=== PATIENT | female | born 1995 | race Caucasian/White ===

== ENCOUNTER → 2018-04-07 13:23 | Outpatient (CLI) | payer OTHER, SELFPAY ==
[2018-04-08 20:27] LABS: Varicella Zoster IgG <135 index (Immune >165)
== END ==
PROVIDERS: PCP Nurse Practitioner Family; Visit Provider Nurse Practitioner Family
DX: Z11.59 Encounter for screening for other viral diseases (principal)
CPT/HCPCS: 36415; 86787

== ENCOUNTER 2020-02-07 12:21 | Outpatient (RCR) | payer BC, SELFPAY | END 2020-02-07 13:00 | disposition home or self-care (01) | LOC: PT 12:21 | PROVIDERS: Visit Provider Orthopaedic Surgery | DX: S82.92XA Unspecified fracture of left lower leg, initial encounter for closed fracture (principal) | CPT/HCPCS: 97760 ==

== ENCOUNTER → 2020-03-07 14:25 | Outpatient (CLI) | payer BC, SELFPAY ==
--- NOTE | 2020-03-07 14:31 | XR_ITS ---
PROCEDURE: XR ANKLE LT MIN 3V CLINICAL INDICATION: fibula fracture COMPARISON: No exams were available for comparison FINDINGS: Included extends of the distal left tibia and fibula appear intact. Normal medial and lateral malleoli. The ankle mortise is anatomic. Intact talar dome and calcaneus. Normal talonavicular and calcaneocuboid articulations. There is significant soft tissue edema/swelling of the ankle demonstrated. IMPRESSION: 1.Negative for acute fracture or dislocation. 2. Periarticular soft tissue edema/swelling of the ankle. Dictated by: Shaquille Juárez 03/07/2020 15:02 Electronically signed by Shaquille Juárez in [facility] 03/07/2020 15:02
== END ==
PROVIDERS: Visit Provider Orthopaedic Surgery
DX: S82.832A Other fracture of upper and lower end of left fibula, initial encounter for closed fracture (principal)
CPT/HCPCS: 73610

== ENCOUNTER 2020-03-07 15:29 | Outpatient (RCR) | payer BC, SELFPAY | END 2020-03-07 16:00 | disposition home or self-care (01) | LOC: PT 15:29 | PROVIDERS: Visit Provider Orthopaedic Surgery | DX: S82.832D Other fracture of upper and lower end of left fibula, subsequent encounter for closed fracture with routine healing (principal) | CPT/HCPCS: 97760 ==

== ENCOUNTER → 2020-04-07 14:49 | Outpatient (CLI) | payer BC, SELFPAY ==
--- NOTE | 2020-04-07 14:54 | XR_ITS ---
PROCEDURE: XR ANKLE LT MIN 3V CLINICAL INDICATION: LT fibula fracture Follow-up fracture COMPARISON: CR XR ANKLE 3+ VW LEFT from 02/05/2020 CR XR ANKLE LT MIN 3V from 03/07/2020 FINDINGS: The transverse fracture at the distal aspect of the fibula at the epiphyseal remnant is barely visible with some sclerosis at this area consistent with healing. The ankle mortise is preserved. IMPRESSION: Further healing of nondisplaced distal fibular fracture Dictated by: Tarun Lincoln MD 04/07/2020 15:29 Tarun Lincoln MD in [facility] 04/07/2020 15:29
== END ==
PROVIDERS: Visit Provider Orthopaedic Surgery
DX: S82.839A Other fracture of upper and lower end of unspecified fibula, initial encounter for closed fracture (principal)
CPT/HCPCS: 73610

== ENCOUNTER → 2021-09-10 08:50 | Outpatient (CLI) | payer BC, SELFPAY | PROVIDERS: Visit Provider Nurse Practitioner | DX: U07.1 COVID-19 (principal) | CPT/HCPCS: C9803; U0003; U0005 ==

== ENCOUNTER 2021-11-22 15:22 | Emergency (ER) | payer BC, SELFPAY ==
[2021-11-22 16:10] VITALS: BP 133/90; PULSE 86; RESP 19; TEMP 37.1; O2SAT 98; BMI 32.3
--- NOTE | 2021-11-22 16:34 | HMH.EDUTC ---
[facility] [place] Clinical Impression: Acute maxillary sinusitis Qualifiers: Recurrence: non-recurrent Qualified Code(s): J01.00 - Acute maxillary sinusitis, unspecified Disposition: Home, Self-Care Condition on Discharge: Good Instructions: DI for Sinusitis Additional Instructions: Start antibiotic patient to take as ordered for a full length of time even if you feel better. Sinus infections do not get better overnight. It may take 2-3 days to notice much improvement so be sure to use conservative measures as discussed for symptoms. Flonase 1 spray each nostril daily to help with nasal congestion, sinus and ear pressure/information Increase fluids Humidifier/vaporizer as needed Tylenol and ibuprofen as needed for fever or pain. If symptoms do not improve or get worse return or be seen in the ER Follow-up with primary care this week Prescriptions: predniSONE [Prednisone 20mg Tab] 20 mg PO BID #10 tab Transmission Status: Pending to [id number] Azithromycin [Zithromax 250mg tab] 250 mg PO DIRECTED #6 tab Transmission Status: [id number] Referrals: Provider,Referral, MD [Primary Care Provider] - Time of Disposition: 16:39 Medical Decision Making - Jim Inquiry Pt receiving controlled substance: No Vital Signs: 11/22/21 16:10 Temperature 98.7 F Temperature Source Oral Pulse Rate [Right Brachial] 86 Respiratory Rate 19 Blood Pressure [Right Arm] 133/90 Blood Pressure Mean [Right Arm] 104 Blood Pressure Source [Right Arm] Automatic Cuff Blood Pressure Position [Right Arm] Sitting 02 Sat by Pulse Oximetry 98 Oxygen Delivery Method Room Air [facility] [place] - General Chief complaint: Urgent [facility] Stated complaint: ching,cough Time Seen by Provider: 11/22/21 16:34 Mode of Arrival: Ambulatory Source of Information: Patient Limitations: No Limitations Description of Symptoms (Recalled from Triage Doc. by RN): PATIENT C/O COUGH THAT SHE HAS HAD SINCE HAVING THE FLU A WEEK AGO HEENT Symptoms (Recalled from RN notes): No Resp Symptoms (Recalled from RN notes): Yes Skin Symptoms (Recalled from RN notes): No MS Symptoms (Recalled from RN notes): No Functional Status (Recalled from RN notes): WNL - History of Present Illness Provider Complaint: 26 yr old female presnets for coughing up thick sputum and congestion since having the flu last week and not improving - Related Data Home Medications Medication Instructions Recorded Confirmed multivitamin 1 tab PO DAILY 06/09/21 06/09/21 Previous Rx's Medication Instructions Recorded etonogestrel 0.12 mg-ethinyl 1 vag ring VAGINAL Q4W #3 each 06/09/21 estradiol 0.015 mg/24 hr vaginal ring Azithromycin [Zithromax 250mg 250 mg PO DIRECTED #6 tab 11/22/21 tab] predniSONE [Prednisone 20mg 20 mg PO BID #10 tab 11/22/21 Tab] Allergies Allergy/AdvReac Type Severity Reaction Status Date / Time No Known Allergies Allergy Verified 06/09/21 11:05 - Worker's Comp Is this a Worker's Comp case?: No [facility] History - Hepatitis A Screen Drug use history?: No High risk sexual behaviors?: No History of sexually transmitted infection?: No Currently employed?: No Childcare worker?: No Do you have indoor plumbing?: Yes Do you have electricity?: Yes Attestation statement:: This patient has been screened for Hepatitis A risk factors. I have reviewed the patient's past medical history: Yes Laterality Cases: Bilateral: Tonsillectomy Other Surgeries: Yes: Other Amputation: No Fractures: No Comment: wisdom teeth, adenoids - Social History Smoking Status: Never smoker Alcohol Intake: current Alcohol Intake Frequency:: holidays/special occasions only Substance Use Type: denies use Occupational Status: unemployed Family Hx:: No significant family history ROS Obtained: Yes Systems reviewed as appropriate & no additional complaints - Constitutional Constitutional: Reports system revi
[2021-11-22 16:37] VITALS: BP 133/90; PULSE 86; RESP 19; TEMP 37.1; O2SAT 98
== END 2021-11-22 16:51 | disposition home or self-care (01) ==
PROVIDERS: Emergency Provider Nurse Practitioner Family
DX: J01.00 Acute maxillary sinusitis, unspecified (principal); Z79.3 Long term (current) use of hormonal contraceptives; Z79.899 Other long term (current) drug therapy
CPT/HCPCS: 99213; G0463

== ENCOUNTER 2023-11-03 17:54 | Emergency (ER) | payer BC, SELFPAY ==
[2023-11-03 18:00] VITALS: BP 137/93; PULSE 76; RESP 20; TEMP 36.6; O2SAT 97; BMI 29.6
[2023-11-03 18:26] LABS: UTC Strep Screen (Rapid) Negative (Negative)
--- NOTE | 2023-11-03 18:40 | EXP.UTC ---
Discharge Plan Disposition Patient Disposition: Home, Self-Care Condition: Good Prescriptions Prescriptions: New prednisone 10 mg tablet 10 mg PO BID 3 Days Qty: 6 0RF azithromycin [Zithromax] 250 mg tablet 250 mg PO UD DOSE PK Qty: 6 0RF Rx Instructions: Take two (2) tablets today, then one (1) tablet days #2 thru #5 bpfrfxwjtofkvys-mjsfrilrk-DR [Bromfed DM] 2-30-10 mg/5 mL Syrup 5 ml PO Q6H PRN (Reason: Cough) Qty: 240 0RF No Action cholecalciferol (vitamin D3) 10 mcg (400 unit) capsule 10 mcg PO DAILY Referrals Follow up/Referrals: Ellen Salguero APRN [Primary Care Provider] - See instructions Activity Restrictions/Add. Instructions Additional Instructions/Restrictions: Drink plenty of fluids. Take tylenol or ibuprofen for pain or fever. Take the medications as directed. Follow up with your regular doctor. GO TO THE ER FOR ANY WORSENING SYMPTOMS Clinical Impressions Clinical Impression: Pharyngitis, Exposure to strep throat Stand Alone Forms Stand Alone Forms: Work/School Release Instructions Patient Instructions: Sore Throat, DI for Pharyngitis/Tonsillopharyngitis -- Adult Discharge ED Provider: Omar Ortiz [facility] [place] General Stated complaint: sore throat Mode of Arrival: Ambulatory Source of Information: Patient Limitations: No Limitations Time Seen by Provider: 11/03/23 18:30 Description of Symptoms (Recalled from Triage Doc. by RN): PATIENT C/O SORE THROAT X 1 WEEK THAT HAS GOTTEN WORSE OVER THE LAST COUPLE OF DAYS HEENT Symptoms (Recalled from RN notes): Yes Resp Symptoms (Recalled from RN notes): No Skin Symptoms (Recalled from RN notes): No MS Symptoms (Recalled from RN notes): No Functional Status (Recalled from RN notes): WNL Related Data Home Medications Medication Instructions Recorded Confirmed cholecalciferol (vitamin D3) 10 10 mcg PO DAILY 10/14/22 10/14/22 mcg (400 unit) capsule Previous Rx's Medication Instructions Recorded azithromycin 250 mg tablet 250 mg PO UD DOSE PK #6 tabs 11/03/23 (Zithromax) nroovmlgwogsopt-iqazxukvitpgayz-TR 5 ml PO Q6H PRN Cough #240 mL 11/03/23 2 mg-30 mg-10 mg/5 mL oral syrup (Bromfed DM) prednisone 10 mg tablet 10 mg PO BID 3 days #6 tabs 11/03/23 Allergies Allergy/AdvReac Type Severity Reaction Status Date / Time No Known Allergies Allergy Verified 10/14/22 13:32 Worker's Comp Is this a Worker's Comp case?: No [facility] Disclaimer: The information contained in this section may have been updated after the patient was seen, as this information can be updated by other users. Surgical History (Updated 10/14/22 @ 13:36 by MONI Lamas) Orange teeth extracted History of tonsillectomy and adenoidectomy Family History Mother Lupus Cancer Cervical Social History Smoking Status: Never smoker alcohol intake: current substance use type: denies use current occupational status: unemployed Travel in the last 8 weeks: None ROS Obtained: Yes All systems reviewed & no additional complaints except as documented Constitutional Constitutional: Reports chills and Reports fever(s) Eyes Eyes: Denies eye discharge ENT Ears, Nose, Mouth, and Throat: Reports as per HPI Cardiovascular Cardiovascular: Denies chest pain Respiratory Respiratory: Denies chest congestion and Reports cough Gastrointestinal Gastrointestingal: Reports nausea; Denies abdominal pain, constipation, cramping, diarrhea or vomiting Musculoskeletal Musculoskeletal: Denies arthralgias Integumentary/Breasts Skin/Breast: Denies rash Neurologic Neurologic: Denies paresthesias Physical Exam General General appearance: alert and in no apparent distress Head Head exam: atraumatic, normocephalic and normal inspection Eye Eye exam: Present normal appearance, PERRL and EOMI ENT ENT exam: Present mucous membranes moist and normal external ear exam Expanded ENT Exam TM/Canal exam: Bilateral TM: erythema and bulging Nose exam: Absent sinus tenderness Mouth exam: Present normal external inspection; Absent drooling Teeth exam: Present normal inspection Throat exam: Present tonsillar erythema, tonsillomegaly and tonsillar exudate Neck Neck exam: Present normal inspection, full ROM and trachea midline; Absent tenderness, meningismus or lymphadenopathy Chest Chest inspection: Present normal inspection and symmetric chest wall rise; Absent tenderness Respiratory Respiratory exam: Present normal lung sounds bilaterally; Absent respiratory distress, wheezes or stridor Cardiovascular Cardiovascular exam: Present regular rate and normal rhythm; Absent systolic murmur or diastolic murmur Abdominal Exam Abdominal exam: Present soft and normal bowel sounds; Absent distention, tenderness, guarding, rebound or rigidity Extremities Exam Extremities exam: Present normal inspection and normal capillary refill; Absent calf tenderness Back Exam Back exam: Present normal inspection and full ROM; Absent tenderness, CVA tenderness (R) or CVA tenderness (L) Neurological Exam Neurological exam: Present alert, oriented X3 and CN II-XII intact Psychiatric Psychiatric exam: Present normal affect and normal mood Skin Skin exam: Present warm, dry, intact and normal color Medical Decision Making Medical Records Medical records reviewed: No I reviewed the patient's medical records. Jim Inquiry Pt receiving controlled substance: No Vital Signs: 11/03/23 18:00 Temperature 97.9 F Temperature Source Oral Pulse Rate [Right Brachial] 76 Respiratory Rate 20 Blood Pressure [Right Arm] 137/93 H Blood Pressure Mean [Right Arm] 107 Blood Pressure Source [Right Arm] Automatic Cuff Blood Pressure Position [Right Arm] Sitting 02 Sat by Pulse Oximetry 97 Oxygen Delivery Method Room Air Lab Data Lab results reviewed: Yes I reviewed the patient's lab results. Lab Results 11/03/23 18:05: Strep Scn Rapid Clinic Negative Orders (Tests/Meds): ORDERS Category Date Time Status Strep Screen Confirmation Stat Micro 11/03/23 18:05 Received
[2023-11-03 18:59] VITALS: BP 137/93; PULSE 76; RESP 20; TEMP 36.6; O2SAT 97
== END 2023-11-03 19:02 | disposition home or self-care (01) ==
PROVIDERS: Emergency Provider Nurse Practitioner Family; PCP Nurse Practitioner Family
DX: J02.9 Acute pharyngitis, unspecified; R05.9 Cough, unspecified
CPT/HCPCS: 87880; 99212; 99214; G0463

== ENCOUNTER 2025-06-30 08:43 | Outpatient (CLI) | payer BC, SELFPAY ==
--- OUTSIDE RECORDS SUMMARY | 2025-05-29 10:00 | XMS_ITS | Encounter Summary ---
[facility] Address [address] [place] [address] Care Team Providers Care Market Research Senior Project Manager Name Role Phone Ellen Salguero APRN Primary Care Provider [phone] Reason for Visit * Reason Comments Care Encounter Details Date Type Department Care Team (Late st Contact Info) Description 05/29/2025 11:00 AM EDT Visit [facility] [address] [place] [address] Sierra Jamil, REFRIGERATING TECHNICIAN [address] [place] [address] follow-up (Primary Dx); Sterilization education Social History Tobacco Use Types Packs/Day Years Used Date Smoking Tobacco: Never Smokeless Tobacco: Never Tobacco Cessation:Counseling Given: Not Answered Alcohol Use Standard Drinks/Week Comments Not Currently 0 (1 standard drink = 0.6 oz pur e alcohol) prior to [facility] Utilities Answer Date Recorded In the past 12 months has [employer] electric, gas, oil, or water company threatened to shut off services in your home? No 04/15/2025 AUDIT-C Answer Date Recorded Q1: How often do you have a drink containing alcohol? Never 04/15/2025 Q2: How many drinks containi ng alcohol do you have on a typical day when you are drinking? Patient does not drink Q3: How often do you have si x or more drinks on one occasion? Never 04/15/2025 Overall Financial Resource Strain (CARDIA) Answe r Date Recorded How hard is it for you to pa y for the very basics like food, housing, medical care, and heating? Not hard at all 04/15/2025 [facility] - Occupational Stress Questionnaire Answer Date Recorded Do you feel stress - tense, restless, nervous, or anxious, or unable to sleep at night because your mind is troubled all the time - these days? Not at all 04/15/2025 Exercise Vital Sign Answer Date Recorde d On average, how many days pe r week do you engage in moderate to strenuous exercise (like a brisk walk)? 5 days 04/15/2025 On average, how many minutes do you engage in exercise at this level? 60 min 04/15/2025 Hunger Vital Sign Answer Date Recorded Within the past 12 months, y ou worried that your food would run out before you got the money to buy more. Never true 04/15/20 25 Within the past 12 months, t he food you bought just didn't last and you didn't have money to get more. Never true 04/15/2025 PRAPARE - Transportation Answer Date Re corded In the past 12 months, has l ack of transportation kept you from medical appointments or from getting medications? No 03/2025 In the past 12 months, has l ack of transportation kept you from meetings, work, or from getting things needed for daily living? No 04/15/2025 Ada Depression Scale Answer Date Recorded Ada Depression Scale Total 9 05/29/2025 The thought of harming myself has occurred to me . Never 05/29/2025 Abuse Screen Answer Date Recorded Feels Unsafe at Home or Work/School no 04/15/2025 Feels Threatened by Someone no 03/2025 Does Anyone Try to Keep You From Having Contact with Others or Doing Things Outside Your Home? no 04/15/2025 Physical Signs of Abuse Present no 04/15/2025 Housing Stability Answer Date Recorded Current Living Arrangements home 04/2025 Potentially Unsafe Housing Conditions none 04/16/2025 Family and Community Support Answer Fabian e Recorded If for any reason you need h elp with day-to-day activities such as bathing, preparing meals, shopping, managing finances, etc., do you get the help you need? I don't need any help 04/15/2025 How often do you feel lonely or isolated from those around you? Never 04/15/2025 Employment Answer Date Recorded Do you want help finding or keeping work or a job? I do not need or want help 04/15/2025 Disabilities Answer Date Recorded Difficulty Concentrating, Remembering or Making Decisions no 04/15/2025 Difficulty Managing Errands Independently no 04/15/2025 Education Answer Date Recorded Do you want help with school or training? For example, starting or completing job training or getting a high school diploma, GED or equivalent No 04/15/2025 Preferred Language Yoruba 04/15/2025 PHQ-2 Answer Date Recorded Patient Health Questionnaire-2 Score 0 04/15/2025 Comments No Sex and Gender Information Value Date Recorded Sex Assigned at Female 04/09/2025 11:47 AM EDT Legal Sex Female 1:50 PM EDT Gender Identity Not on file Sexual Orientation Not on file documented as of this encounter Last Filed Vital Signs Vital Sign Reading Time Taken Comments Blood Pressure 110/78 05/29/2025 11:08 AM EDT Pulse - - Temperature - - Respiratory Rate 18 05/29/2025 11:08 AM EDT Oxygen Saturation - - Inhaled Oxygen Concentration - - Weight 101 kg (223 lb) 05/29/2025 11:08 AM EDT Height 165.1 cm (5' 5 ) 05/29/2025 11:08 AM EDT Body Mass Index 37.11 05/29/2025 11:08 AM EDT documented in this encounter Progress Notes * Sierra Jamil, LILLY - 05/29/2025 11:00 AM EDT Images from the original note were not included. Chief Complaint Patient presents with Care Visit Emma Kim is a 29 y.o. who presents today for a 6 week(s) check. Vaginal, Spontaneous Information for the patient's : Carlos Kim [[id number]] 04/15/2025 male Carlos Kim 4640 g (10 lb 3.7 oz) Gestational Age: 40w4d Baby Discharged: Discharged with Mom Delivering Physician: Myah Mcqueen MD Her was complicated by no known issues. The laceration was 1st degree and is healing well. Patient describes vaginal bleeding as absent. Patient is . She desires a tubal ligation for contraception. She would like to discuss the following complaints today: none. Patient denies concerns for depression/anxiety. Patient denies suicidal or homicidal ideation. Her depression screening questionnaire: 9. No treatment is indicated Last Pap : 11/2023 at [facility] per Patient. Results: negative. HPV: negative. Last Completed Pap Smear This patient has no relevant Health Maintenance data. The additional following portions of the patient's history were reviewed and updated as appropriate: allergies, current medications, past family history, past medical history, past social history, past surgical history, and problem list. Review of Systems All other systems reviewed and are negative. I have reviewed and agree with the HPI, ROS, and historical information as entered above. Sierramarcelino Jamil, REFRIGERATING TECHNICIAN BP 110/78 Resp 18 Ht 165.1 cm (65 ) Wt 101 kg (223 lb) LMP 07/09/2024 Yes BMI 37.11 kg/m?? Physical Exam Vitals and nursing note reviewed. Exam conducted with a duplicator punch operator present. Constitutional: General: She is not in acute distress. Appearance: Normal appearance. She is not ill-appearing. Pulmonary: Effort: Pulmonary effort is normal. No respiratory distress. Abdominal: General: There is no distension. Palpations: Abdomen is soft. There is no mass. Tenderness: There is no abdominal tenderness. There is no guarding or rebound. Hernia: No hernia is present. Genitourinary: General: Normal vulva. Vagina: Normal. Cervix: Normal. Uterus: Normal. Adnexa: Right adnexa normal and left adnexa normal. Skin: General: Skin is warm and dry. Neurological: Mental Status: She is alert and oriented to person, place, and time. Psychiatric: Mood and Affect: Mood normal. Behavior: Behavior normal. Assessment and Plan Problem List Items Addressed This Visit None Visit Diagnoses follow-up - Primary Sterilization education S/p Vaginal delivery, 6 week(s) . Doing well. Return to normal physical activity. No pelvic restrictions. Baby doing well. going well. No si/sx of depression Contraception: planning sterilization; no UPI Return in about 1 year (around 05/29/2026) for Annual physical. Sierra Jamil APRN 05/29/2025 documented in this encounter Plan of Treatment Not on file documented as of this encounter Visit Diagnoses Diagnosis follow-up- Primary Routine follow-up Sterilization education documented in this encounter Care Teams Market Research Senior Project Manager Relationship Specialty Start Date End Date Ellen Salguero APRN [address] [place] [address] PCP - General 04/10/25 documented as of this encounter
[2025-06-30 20:08] LABS: Coronavirus 19, PCR Not Detected (NotDetected); Influenza A, PCR Not Detected (NotDetected); Influenza B, PCR Not Detected (NotDetected)
--- OUTSIDE RECORDS SUMMARY | 2025-07-01 10:44 | XMS_ITS | Patient Health Record ---
Author Organization [facility] Address [address] [place] [address] Care Team Providers Care Virginia Line Attendant Name Role Phone Jasmyne Dupree Unavailable [phone] Allergies Allergen (clinical drug ingredient) Drug/Non Drug Allergy documented on EMR Reaction Allergy Type Onset Date Status LATEX EXAM GLOVES (DISPOSABLE GLOVES) Unspecified Drug Allergy 06/18/2015 Active Reason For Referral No Information Problems Problem Type SNOMED Code ICD Code Onset Dates Problem Status W/U Status Risk Notes Problem state, 2 weeks (18568908) 2 weeks follow-up (Z39.2) 05/05/20 20 Active confirmed visit Plan Of Treatment No Information Medical (General) History Medical History History ICD Code A Routine Yeast Infection Acid Reflux Urinary tract infections MENSTR FLOW: Medium BABYPHYSNAME: - Surgical History Surgery Date(Month/Year) T&A, wisdom teeth
--- OUTSIDE RECORDS SUMMARY | 2025-07-01 10:44 | XMS_ITS ---
Author Organization Unknown ENCOUNTERS Encounter Performer Location Date Diagnosis Diagnosis Status Pre Admit [facility] [address] [place] [address] [id number] Emergency [facility] [address] [place] [address] [id number] [facility] Emergency [facility] [address] [place] [address] [id number] JAMESON *Note: Encounters from your own facility or health system may be excluded. Allergies, Adverse Reactions, Alerts Allergen Type Severity Identification Date Medications Name Date Quantity Days Supplied GPI Number
--- OUTSIDE RECORDS SUMMARY | 2025-07-01 10:44 | XMS_ITS | Clinical Summary ---
[facility] [address] [place] [address] Care Team Providers Care Customer Support Executive Name Role Phone Ellen Salguero APRN Primary Care Provider [phone] Allergies No known active allergies Medications Vit-Fe Fumarate-FA ( ) 27-1 MG tablet tablet Take 1 tablet by mouth Daily. Active Active Problems Problem Noted Date Diagnosed Date Normal labor 04/15/2025 (normal spontaneous vaginal delivery) 04/15 Overview (04/15/2025): 04/15/2025- at 40 weeks and 4 days 10 pounds 4 ounces baby boy named Carlos with 32nd shoulder dystocia Shoulder dystocia during labor and delivery 03/2025 09/05/2024 Overview (02/20/2025): 2 prev term, largest 8#5oz EFW 32 wks 97%ile, repeat growth 36 wks Resolved Problems Problem Noted Date Diagnosed Date Resolved Date (normal spontaneous vaginal delivery) 03/24/2020 09/05/2024 Normal labor 03/23/2020 03/24/2020 02/05/2020 03/24/2020 Encounters Date Type Department Care Team Description 05/29/2025 11:00 AM EDT Visit [facility] OBGYN [address] [place] [address] Sierra Jamil APRN follow-up (Primary Dx); Sterilization education 05/29/2025 Travel 04/26/2025 Maternal Screening [facility] NURSE CALL CENTER [address] [place] [address] Era Jim RN 04/26/2025 Maternal Screening [facility] NURSE CALL CENTER [address] [place] [address] Era Jim RN 04/18/2025 Maternal Screening [facility] NURSE CALL CENTER [address] [place] [address] Era Jim RN 04/15/2025 1:56 PM EDT - 04/17/2025 12:00 PM EDT Hospital Encounter [facility] MOTHER BABY 4B [address] [place] [address] Janice Holman MD Discharge Disposition: Home or Self Care 04/15/2025 Travel 04/10/2025 9:40 AM EDT Routine [facility] OBGYN [address] [place] [address] Sierra Jamil APRN GA: [id number] 04/10/2025 Travel 04/03/2025 8:30 AM EDT Routine [facility] [place] [address] Janice Holman MD GA: [id number] 04/03/2025 Travel from Last 3 Months Immunizations Immunization Administration Dates Next Due Tdap 01/23/2025 Family History Medical History Relation Name Comments No Known Problems Brother No Known Problems Father Hypertension Maternal Grandmother Cervical cancer Mother Lupus Mother Scleroderma Mother No Known Problems Paternal Grandfather Cancer Paternal Grandmother No Known Problems Sister Relation Name Status Comments Brother Alive Father Alive Maternal Grandmother Alive Mother Alive Paternal Grandfather Alive Paternal Grandmother Alive Sister Alive Social History Tobacco Use Types Packs/Day Years Used Date Smoking Tobacco: Never Smokeless Tobacco: Never Tobacco Cessation:Counseling Given: Not Answered Alcohol Use Standard Drinks/Week Comments Not Currently 0 (1 standard drink = 0.6 oz pur e alcohol) prior to [facility] Utilities Answer Date Recorded In the past 12 months has th e electric, gas, oil, or water company threatened [...] and heating? Not hard at all 04/15/2025 [facility] - Occupational Stress Questionnaire Answer Date Recorded [...] things needed for daily living? No 04/15/2025 [place] Depression Scale Answer Date Recorded [place] Depression Scale Total 9 05/29/2025 The thought [...] GED or equivalent No 04/15/2025 Preferred Language Citizen Of [place] 04/15/2025 PHQ-2 Answer Date Recorded Patient Health Questionnaire-2 Score 0 04/15/2025 Comments No Sex and Gender Information Value Date Recorded Sex Assigned at Female 04/09/2025 11:47 AM EDT Legal Sex Female 1:50 PM EDT Gender Identity Not on file Sexual Orientation Not on file Last Filed Vital Signs Vital Sign Reading Time Taken Comments Blood Pressure 110/78 05/29/2025 11:08 AM EDT Pulse 81 04/17/2025 7:25 AM EDT Temperature 36.8 C (98.3 F) 04/17/2025 7:25 AM EDT Respiratory Rate 18 05/29/2025 11:08 AM EDT Oxygen Saturation 98% 02/05/2020 4:36 PM EDT Inhaled Oxygen Concentration - - Weight 101 kg (223 lb) 05/29/2025 11:08 AM EDT Height 165.1 cm (5' 5 ) 05/29/2025 11:08 AM EDT Body Mass Index 37.11 05/29/2025 11:08 AM EDT Plan of Treatment Health Maintenance Due Date Last Done Comments Annual Gynecologic Pelvic and Breast Exam 1995 PAP SMEAR 2016 ANNUAL PHYSICAL 09/05/2024 INFLUENZA VACCINE 03/08/2025 05/01/2024, , 07/27/2023, Additional history exists TDAP/TD VACCINES (3 - Td or Tdap) 01/23/2035 01/23/2025, 02/14/2020, 08/28/2018 CHLAMYDIA SCREENING Discontinued 09/05/2024 HEPATITIS C SCREENING Completed 09/05/2024, 020 Pneumococcal Vaccine 0-49 Aged Out No longer eligible based on patient's age to complete this topic Procedures Procedure Name Priority Date/Time Associated Diagnosis Comments CBC AND DIFFERENTIAL Timed 04/16/2025 5:13 AM EDT CBC WITH AUTO DIFFERENTIAL Timed 04/16/2025 5:13 AM EDT TYPE AND SCREEN Routine 04/15/2025 4:13 PM EDT TREPONEMA PALLIDUM AB W/REFLEX RPR Routine 04/15/2025 4:13 PM EDT COMPREHENSIVE METABOLIC PANEL Routine 04/15/2025 4:13 PM EDT CBC (NO DIFF) Routine 04/15/2025 4:13 PM EDT POCT URINALYSIS DIPSTICK, MANUAL Routine 04/10/2025 10:05 AM EDT care, antepartum, unspecified 39 weeks gestation of POCT URINALYSIS DIPSTICK, MANUAL Routine 04/03/2025 8:30 AM EDT 38 weeks gestation of care, antepartum, unspecified CHLAMYDIA TRACHOMATIS, NEISSERIA GONORRHOEAE, PCR Routine 09/05/2024 12:38 PM EST care, antepartum OBSTETRIC PANEL Routine 09/05/2024 12:38 PM EST care, antepartum from Last 3 Months or Most Recently Relevant to Health Maintenance Results * (ABNORMAL) CBC Auto Differential (04/16/2025 5:13 AM EDT) WBC 14.39(H) 3.40 - 10.80 10*3/mm3 04/16/2025 5:56 AM EDT [facility] RBC 4.12 3.77 - 5.28 10*6/mm3 04/16/2025 5:56 AM EDT [facility] Hemoglobin 11.8(L) 12.0 - 15.9 g/dL 04/16/2025 5:56 AM EDT [facility] Hematocrit 36.0 34.0 - 46.6 % 04/16/2025 5:56 AM EDT [facility] MCV 87.4 79.0 - 97.0 fL 04/16/2025 5:56 AM EDT [facility] MCH 28.6 26.6 - 33.0 pg 04/16/2025 5:56 AM EDT [facility] MCHC 32.8 31.5 - 35.7 g/dL 04/16/2025 5:56 AM EDT [facility] RDW 13.9 12.3 - 15.4 % 04/16/2025 5:56 AM EDT [facility] RDW-SD 44.3 37.0 - 54.0 fl 04/16/2025 5:56 AM EDT [facility] MPV 9.8 6.0 - 12.0 fL 04/16/2025 5:56 AM EDT [facility] Platelets 234 140 - 450 10*3/mm3 04/16/2025 5:56 AM EDT [facility] Neutrophil % 77.8(H) 42.7 - 76.0 % 04/16/2025 5:56 AM EDT [facility] Lymphocyte % 15.3(L) 19.6 - 45.3 % 04/16/2025 5:56 AM EDT [facility] Monocyte % 5.1 5.0 - 12.0 % 04/16/2025 5:56 AM EDT [facility] Eosinophil % 0.6 0.3 - 6.2 % 04/16/2025 5:56 AM EDT [facility] Basophil % 0.3 0.0 - 1.5 % 04/16/2025 5:56 AM EDT [facility] Immature Grans % 0.9(H) 0.0 - 0.5 % 04/16/2025 5:56 AM EDT [facility] Neutrophils, Absolute 11.19(H) 1.70 - 7.00 10*3/mm3 04/16/2025 5:56 AM EDT [facility] Lymphocytes, Absolute 2.20 0.70 - 3.10 10*3/mm3 04/16/2025 5:56 AM EDT [facility] Monocytes, Absolute 0.74 0.10 - 0.90 10*3/mm3 04/16/2025 5:56 AM EDT [facility] Eosinophils, Absolute 0.08 0.00 - 0.40 10*3/mm3 04/16/2025 5:56 AM EDT [facility] Basophils, Absolute 0.05 0.00 - 0.20 10*3/mm3 04/16/2025 5:56 AM EDT [facility] Immature Grans, Absolute 0.13(H) 0.00 - 0.05 10*3/mm3 04/16/2025 5:56 AM EDT [facility] nRBC 0.0 0.0 - 0.2 /100 WBC 04/16/2025 5:56 AM [facility] Blood Venipuncture / Unknown 04/16/2025 5:13 AM EDT 04/16/2025 5:43 AM EDT us Myah Mcqueen MD LAB BLOOD ORDERABLES Fin al Result [facility]
[address] [place] [address], [place] [phone] * Treponema pallidum AB w/Reflex RPR (04/15/2025 4:13 PM EDT) Treponemal AB Total Non-Reacti ve Non-React henrry 04/15/2025 11:38 PM EDT [facility] Blood Venipuncture / Unknown 04/15/2025 4:13 PM EDT 04/15/2025 4:17 PM EDT Narrative [facility] - 04/15/2025 11:38 PM EDT Reactive results will reflex RPR testing. Erwin Torres DO LAB BLOOD ORDERABLES Final Result Performing Organization Address City/[facility]/ZIP Co de Phone Number [facility]
[address] [place] [address], * (ABNORMAL) CBC (No Diff) (04/15/2025 4:13 PM EDT) WBC 11.49(H) 3.40 - 10.80 10*3/mm3 04/15/2025 4:24 PM EDT [facility] RBC 4.63 3.77 - 5.28 10*6/mm3 04/15/2025 4:24 PM EDT [facility] Hemoglobin 13.2 12.0 - 15.9 g/dL 04/15/2025 4:24 PM EDT [facility] Hematocrit 39.3 34.0 - 46.6 % 04/15/2025 4:24 PM EDT [facility] MCV 84.9 79.0 - 97.0 fL 04/15/2025 4:24 PM EDT [facility] MCH 28.5 26.6 - 33.0 pg 04/15/2025 4:24 PM EDT [facility] MCHC 33.6 31.5 - 35.7 g/dL 04/15/2025 4:24 PM EDT [facility] RDW 13.8 12.3 - 15.4 % 04/15/2025 4:24 PM EDT [facility] RDW-SD 42.5 37.0 - 54.0 fl 04/15/2025 4:24 PM EDT [facility] MPV 9.6 6.0 - 12.0 fL 04/15/2025 4:24 PM EDT [facility] Platelets 275 140 - 450 10*3/mm3 04/15/2025 4:24 PM EDT [facility] Blood Venipuncture / Unknown 04/15/2025 4:13 PM EDT 04/15/2025 4:17 PM EDT Erwin Torres DO LAB BLOOD ORDERABLES Final Result Performing Organization Address City/[facility]/ZIP Co de Phone Number [facility]
[address] [place] [address], [place] [phone] * Type & Screen (04/15/2025 4:13 PM EDT) ABO Type O 04/15/2025 5:09 PM EDT [facility] RH type Positive 04/15/2025 5:09 PM EDT [facility] Antibody Screen Negative 04/15/2025 5:09 PM EDT [facility] T&S Expiration Date 04/18/2025 11:59:59 PM 04/15/2025 5:09 PM EDT [facility] Blood Venipuncture / Unknown 04/15/2025 4:13 PM EDT 04/15/2025 4:21 PM EDT us Erwin Torres DO BLOOD BANK TEST ORDERABLES Edited Result - Final [facility]
[address] [place] [address], [place] [phone] * (ABNORMAL) Comprehensive Metabolic Panel (04/15/2025 4:13 PM EDT) Glucose 98 65 - 99 mg/dL 04/15/2025 4:46 PM EDT [facility] BUN 7.3 6.0 - 20.0 mg/dL 04/15/2025 4:46 PM EDT [facility] Creatinine 0.50(L) 0.57 - 1.00 mg/dL 04/15/2025 4:46 PM EDT [facility] Sodium 138 136 - 145 mmol/L 04/15/2025 4:46 PM EDT [facility] Potassium 4.2 3.5 - 5.2 mmol/L 04/15/2025 4:46 PM EDT [facility] Comment:Slight hemolysis det ected by analyzer. Result may be falsely elevated. Chloride 104 98 - 107 mmol/L 04/15/2025 4:46 PM EDT [facility] CO2 20.0(L) 22.0 - 29.0 mmol/L 04/15/2025 4:46 PM EDT [facility] Calcium 9.3 8.6 - 10.5 mg/dL 04/15/2025 4:46 PM EDT [facility] Total Protein 6.8 6.0 - 8.5 g/dL 04/15/2025 4:46 PM EDT [facility] Albumin 3.8 3.5 - 5.2 g/dL 04/15/2025 4:46 PM EDT [facility] ALT (SGPT) 10 1 - 33 U/L 04/15/2025 4:46 PM EDT [facility] AST (SGOT) 20 1 - 32 U/L 04/15/2025 4:46 PM EDT [facility] Alkaline Phosphatase 197(H) 39 - 117 U/L 04/15/2025 4:46 PM EDT [facility] Total Bilirubin 0.5 0.0 - 1.2 mg/dL 04/15/2025 4:46 PM EDT [facility] Globulin 3.0 gm/dL 04/15/2025 4:46 PM EDT [facility] Comment:Calculated Result A/G Ratio 1.3 g/dL 04/15/2025 4:46 PM EDT [facility] BUN/Creatinine Ratio 14.6 7.0 - 25.0 04/15/2025 4:46 PM EDT [facility] Anion Gap 14.0 5.0 - 15.0 mmol/L 04/15/2025 4:46 PM EDT [facility] eGFR 130.4 >60.0 mL/min/1.7 3 04/15/2025 4:46 PM EDT [facility] Blood Venipuncture / Unknown 04/15/2025 4:13 PM EDT 04/15/2025 4:17 PM EDT Narrative [facility] - 04/15/2025 4:46 PM EDT GFR Categories in Chronic Kidney Disease (CKD) GFR Category GFR (mL/min/1.73) Interpretation G1 90 or greater Normal or high (1) G2 60-89 Mild decrease (1) G3a 45-59 Mild to moderate decrease G3b 30-44 Moderate to severe decrease G4 15-29 Severe decrease G5 14 or less Kidney failure (1)In the absence of evidence of kidney disease, neither GFR category G1 or G2 fulfill the criteria for CKD. eGFR calculation 2020 CKD-EPI creatinine equation, which does not include race as a factor Erwin Torres DO LAB BLOOD ORDERABLES Final Result [facility]
[address] [place] [address], * POC Urinalysis Dipstick (04/10/2025 10:05 AM EDT) Only the most recent of2 resultswithin the time period is included. Glucose, UA Negative Negative mg/dL [facility] Protein, POC Negative Negative mg/dL [facility] Urine 04/10/2025 10:0 5 AM EDT Janice Holman MD POINT OF CARE TEST ORDERABLES Fi nal Result [facility]
[address] [place] [address], * Chlamydia trachomatis, Neisseria gonorrhoeae, PCR - Urine, Urine, Clean Catch (09/05/2024 12:38 PM EST) Chlamydia trachomatis, DONG Negative Negative [facility] Neisseria gonorrhoeae, DONG Negative Negative [facility] Urine Urine specimen obtained by clean catch procedure / Unknown 09/05/2024 12:38 PM EST 09/05/2024 Comment: CD- [id number] Narrative [facility] ([facility]BULATORY) - 09/07/2024 6:10 AM EST Performed at: [facility] [id number] Vehicle Assembler: Agnieszka Rizo MD, Phone: [phone] Patient Fasting: N Janice Holman MD MICROBIOLOGY - GENERAL ORDERABLE S Final Result [facility] ([facility]UL[facility]) [address] [place] [address], [place] [phone] [facility] [address] [place] [address], [place] [phone] * (ABNORMAL) Obstetric Panel (09/05/2024 12:38 PM EST) Hepatitis B Surface Ag Negative Negative [facility] Hep C Virus Ab Non Reactive Non Reactive [facility] Comment: HCV antibody alone does not differentiate between previously resolved infection and active infection. Equivocal and Reactive HCV antibody results should be followed up with an HCV RNA test to support the diagnosis of active HCV infection. RPR Non Reactive Non Reactive [facility] Rubella Antibodies, IgG 1.80 Immune >0.99 index [facility] Comment: Non-immune <0.90 Equivocal 0.90 - 0.99 Immune >0.99 ABO Type O [facility] Rh Factor Positive [facility] Comment: Please note: Prior records for this patient's ABO / Rh type are not available for additional verification. Antibody Screen Negative Negative [facility] WBC 10.2 3.4 - 10.8 x10E3/uL [facility] RBC 4.51 3.77 - 5.28 x10E6/uL [facility] Hemoglobin 12.8 11.1 - 15.9 g/dL [facility] Hematocrit 39.8 34.0 - 46.6 % [facility] MCV 88 79 - 97 fL [facility] MCH 28.4 26.6 - 33.0 pg [facility] MCHC 32.2 31.5 - 35.7 g/dL [facility] RDW 12.3 11.7 - 15.4 % [facility] Platelets 325 150 - 450 x10E3/uL [facility] Neutrophil Rel % 80 Not Estab. % [facility] Lymphocyte Rel % 15 Not Estab. % [facility] Monocyte Rel % 4 Not Estab. % [facility] Eosinophil Rel % 0 Not Estab. % [facility] Basophil Rel % 0 Not Estab. % [facility] Neutrophils Absolute 8.1(H) 1.4 - 7.0 x10E3/uL [facility] Lymphocytes Absolute 1.5 0.7 - 3.1 x10E3/uL [facility] Monocytes Absolute 0.4 0.1 - 0.9 x10E3/uL [facility] Eosinophils Absolute 0.0 0.0 - 0.4 x10E3/uL [facility] Basophils Absolute 0.0 0.0 - 0.2 x10E3/uL [facility] Immature Granulocyte Rel % 1 Not Estab. % [facility] Immature Grans Absolute 0.1 0.0 - 0.1 x10E3/uL [facility] Blood 09/05/2024 12:3 8 PM EST 09/05/2024 Narrative [facility] ([facility]) - 09/07/2024 6:10 AM EST Performed at: - [facility] [address] [id number] Vehicle Assembler: Arley Hemphill PhD, Phone: [phone] Patient Fasting: N us Janice Holman MD LAB BLOOD ORDERABLES Final Resul t [facility] ([facility]) [address] [place] [address], [place] [phone] [facility] [address] [place] [address], [place] [phone] from Last 3 Months or Most Recently Relevant to Health Maintenance Insurance [facility] PPO Advance Directives * CPR (Attempt to Resuscitate) (Latest Code Status on File) Date Activated Date Inactivated Comments 04/15/2025 8:10 PM 04/17/2025 2:31 PM Question Answer Comments Code Status (Patient has no pulse and is not breathing): CPR (Attempt to Resuscitate) Medical Interventions (Patie nt has pulse or is breathing): Full * CPR (Attempt to Resuscitate) Date Activated Date Inactivated Comments 04/15/2025 4:52 PM 04/15/2025 8:10 PM Question Answer Comments Code Status (Patient has no pulse and is not breathing): CPR (Attempt to Resuscitate) Medical Interventions (Patie nt has pulse or is breathing): Full Support Level Of Support Discussed With: Patient * CPR (Attempt to Resuscitate) Date Activated Date Inactivated Comments 03/23/2020 2:52 AM 03/25/2020 2:09 PM Question Answer Comments Code Status (Patient has no pulse and is not breathing): CPR (Attempt to Resuscitate) Medical Interventions (Patie nt has pulse or is breathing): Full * CPR (Attempt to Resuscitate) Date Activated Date Inactivated Comments 03/23/2020 12:56 AM 03/23/2020 2:52 AM Question Answer Comments Code Status (Patient has no pulse and is not breathing): CPR (Attempt to Resuscitate) Medical Interventions (Patie nt has pulse or is breathing): Full Care Teams Customer Support Executive Relationship Specialty Start Date End Date Ellen Salguero APRN [address] [place] [address] PCP - General 04/10/25
--- OUTSIDE RECORDS SUMMARY | 2025-07-01 10:44 | XMS_ITS | Encounter Summary ---
[facility] Address [address] [place] [address] Care Team Providers Care Forensic Toxicologist Name Role Phone Ellen Salguero APRN Primary Care Provider [phone] Encounter Details Date Type Department Care Team (Latest Contact Info) Description 05/29/2025 Travel Social History Tobacco Use Types Packs/Day Years Used Date Smoking Tobacco: Never Smokeless Tobacco: Never Alcohol Use Standard Drinks/Week Comments Not Currently 0 (1 standard drink = 0.6 oz pur e alcohol) prior to [facility] Utilities Answer Date Recorded In the past 12 months has [employer] electric, gas, oil, or water company threatened [...] and heating? Not hard at all 04/15/2025 [facility] [place] [facility] - Occupational Stress Questionnaire Answer Date Recorded [...] things needed for daily living? No 04/15/2025 [place] Depression Scale Answer Date Recorded [place] Depression Scale Total 9 05/29/2025 The thought [...] GED or equivalent No 04/15/2025 Preferred Language [place] 04/15/2025 PHQ-2 Answer Date Recorded Patient Health Questionnaire-2 Score 0 04/15/2025 Comments No Sex and Gender Information Value Date Recorded Sex Assigned at Female 04/09/2025 11:47 AM EDT Legal Sex Female 1:50 PM EDT Gender Identity Not on file Sexual Orientation Not on file documented as of this encounter Plan of Treatment Not on file documented as of this encounter Visit Diagnoses Not on filedocumented in this encounter Care Teams Forensic Toxicologist Relationship Specialty Start Date End Date Ellen Salguero APRN [address] [place] [address] PCP - General 04/10/25 documented as of this encounter
== END 2025-06-30 23:59 ==
LOC: LAB.DROPOF 07-01 10:22
PROVIDERS: PCP Nurse Practitioner Family; Visit Provider Nurse Practitioner
DX: J06.9 Acute upper respiratory infection, unspecified (principal)
CPT/HCPCS: 87631